=== PATIENT | female | born 1970 | race Caucasian/White ===

== ENCOUNTER → 2017-06-08 | Day surgery (SDC) | payer MEDICAID ==
[~2017-06-08] VITALS: Ht 175.3 cm; Wt 122.5 kg
[~2017-06-08] MED LIST: ANGIOMAX 250 MG VIAL IV ONE; ARIP30TA; ASPI-498 OR; CARV12.544 PO; CHOL20007 PO; CLON1TAB PO; GABA-497 PO; GLIP-116 PO; HEPARIN SODIUM (PORCINE) 5000 UNITS/ML 1ML VIAL ONE; INSLANTI SC; IODIXANOL 320MG/ML 100ML BTL IV ONE; LIDOCAINE 2%HCL (LOCAL ANESTH.) INJ 20ML MDV ONE; METF-372 PO; MIDAZOLAM HCL 1MG/1ML-2 ML VIAL ONE; MONT10TA34 PO; OMEG100062 PO; OMEP20CA74 OR; ONDA4TAB5 PO; ONDANSETRON HCL 4 MG/2 ML VIAL ONE; QUET200T3 PO; QUET400T3 PO; ROPI4TAB4 PO; SIMV-8 PO; TRAZ100T2 PO; VENL225T10 PO; VERAPAMIL 2.5MG/ML INJ 2ML VIAL IV ONE; fentaNYL CITRATE 100 MCG/2 ML VL ONE
== END | disposition home or self-care (01) ==
LOC: CATH 06:51
PROVIDERS: ATTEND Internal Medicine
DX: I20.0 Unstable angina (principal); J44.9 Chronic obstructive pulmonary disease, unspecified; F31.9 Bipolar disorder, unspecified; F41.0 Panic disorder [episodic paroxysmal anxiety]; F41.9 Anxiety disorder, unspecified; F32.9 Major depressive disorder, single episode, unspecified; Z87.891 Personal history of nicotine dependence
CPT/HCPCS: 93458; C1769; C1894; J1644; J3010; J7030; 93005; 99152; J2250; J2405; Q9967

== ENCOUNTER 2020-08-08 12:53 | Inpatient (IN) | payer MEDICAID ==
[~2020-08-08] VITALS: Ht 172.7 cm; Wt 117.9 kg
[~2020-08-08 12:53] MED LIST changes: -ANGIOMAX 250 MG VIAL IV ONE; +ARIP1TAB9; -ARIP30TA; -GABA-497 PO; +GABA300C10 PO; -GLIP-116 PO; +GLIP10TA9 PO; -HEPARIN SODIUM (PORCINE) 5000 UNITS/ML 1ML VIAL ONE; -IODIXANOL 320MG/ML 100ML BTL IV ONE; -LIDOCAINE 2%HCL (LOCAL ANESTH.) INJ 20ML MDV ONE; -MIDAZOLAM HCL 1MG/1ML-2 ML VIAL ONE; +ONDA-144 PO; -ONDA4TAB5 PO; -ONDANSETRON HCL 4 MG/2 ML VIAL ONE; -QUET200T3 PO; +QUET200T4 PO; -ROPI4TAB4 PO; +ROPI4TAB6 PO; -TRAZ100T2 PO; +TRAZ100T3 PO; -VERAPAMIL 2.5MG/ML INJ 2ML VIAL IV ONE; -fentaNYL CITRATE 100 MCG/2 ML VL ONE
[2020-08-08] MEDS ORDERED: ASPirin 81 mg TAB PO ONE (13:15)
[2020-08-08 13:43] LABS: Basophils # (auto) 0 10 ^3/uL (0-0.2); Basophils % (auto) 0.3 % (0.0-2.0); Eosinophils # (auto) 0.2 10 ^3/uL (0-0.8); Eosinophils % (auto) 2.5 % (0.0-7.0); Hematocrit 36.2 % (36.0-46.0); Hemoglobin 11.6 g/dL (12.2-16.2); Lymphocytes # (auto) 2.3 10 ^3/uL (0.4-5.4); Lymphocytes % (auto) 31.3 % (10.0-50.0); Mean Corpuscular Hemoglobin 27.1 pg (28.0-32.0); Mean Corpuscular Hgb Conc. 32.1 g/dL (32.0-36.0); Mean Corpuscular Volume 84.3 fL (80.0-100.0); Monocytes # (auto) 0.5 10 ^3/uL (0-1.3); Monocytes % (auto) 6.6 % (0.0-12.0); Neutrophils # (auto) 4.4 10 ^3/uL (1.6-8.6); Neutrophils % (auto) 59.3 % (37.0-80.0); Platelet Count (auto) 324 10^3/uL (140-450); Red Blood Cells 4.29 10^6/uL (4.0-5.20); Red Cell Distribution Width 17.5 % (11.8-14.3); White Blood Cell 7.4 10^3/uL (4.4-10.8)
[2020-08-08 14:10] LABS: Alanine Aminotransferase 22 U/L (13-56); Albumin 4.1 g/dL (3.4-5.0); Anion Gap 5 (5-15); Blood Urea Nitrogen 12 mg/dL (7-18); Carbon Dioxide 24 mmol/L (21-32); Chloride 110 mmol/L (98-107); Glucose 121 mg/dL (74-106); Magnesium 2.3 mg/dL (1.6-2.6); Potassium 3.8 mmol/L (3.5-5.1); Sodium 139 mmol/L (136-145)
[2020-08-08 14:15] LABS: Alkaline Phosphatase 77 U/L (45-117); Aspartate Aminotransferase 14 U/L (15-37); BUN/Creatinine Ratio 15.4; Bilirubin, Total 0.2 mg/dL (0.2-1.0); GFR African American 101 mL/min; GFR Non-African American 84 mL/min
[2020-08-08] MEDS ORDERED: ONDANSETRON HCL 4 MG/2 ML VIAL IV PRN (15:00)
[2020-08-08] MEDS ORDERED: NITROGLYCERIN 0.4 MG SL TAB SL PRN (15:00)
[2020-08-08] MEDS ORDERED: MORPHINE SULF INJ 2 MG/ML SYRINGE 1ML IV PRN ×2 (15:00)
[2020-08-08] MEDS ORDERED: HYDROcodone-ACET 5/325MG TAB PO PRN (15:00)
[2020-08-08] MEDS ORDERED: ERGO1CAP12 PO (16:50)
[2020-08-08] MEDS ORDERED: OMEP-263 PO (16:50)
[2020-08-08] MEDS ORDERED: PRAV20TA3 PO (16:50)
[2020-08-08] MEDS ORDERED: METF-869 PO (16:50)
[2020-08-08] MEDS ORDERED: GABA-339 PO (16:51)
[2020-08-08] MEDS ORDERED: ONDA-180 PO (16:52)
[2020-08-08] MEDS ORDERED: NAPR500T31 PO (16:55)
[2020-08-08] MEDS ORDERED: ACET-6 PO (16:55)
[2020-08-08] MEDS ORDERED: FERR-20 PO (16:56)
[2020-08-08] MEDS ORDERED: BUPR450T4 PO (16:57)
[2020-08-08 21:48] VITALS: BP 113/82
== END 2020-08-08 23:15 | disposition home health service (06) | DRG 198 ==
LOC: ER 12:53 → TELE 12:54 → TELE-CENTR 18:04
PROVIDERS: ADMIT Internal Medicine; ATTEND Internal Medicine
DX: I25.119 Atherosclerotic heart disease of native coronary artery with unspecified angina pectoris (principal); E11.40 Type 2 diabetes mellitus with diabetic neuropathy, unspecified; G25.81 Restless legs syndrome; I10 Essential (primary) hypertension; J44.9 Chronic obstructive pulmonary disease, unspecified; E66.9 Obesity, unspecified; F32.9 Major depressive disorder, single episode, unspecified; F41.9 Anxiety disorder, unspecified; K21.9 Gastro-esophageal reflux disease without esophagitis; E78.5 Hyperlipidemia, unspecified; Z80.9 Family history of malignant neoplasm, unspecified; Z82.3 Family history of stroke; Z87.442 Personal history of urinary calculi; Z82.49 Family history of ischemic heart disease and other diseases of the circulatory system; Z90.710 Acquired absence of both cervix and uterus; Z95.5 Presence of coronary angioplasty implant and graft; Z68.39 Body mass index [BMI] 39.0-39.9, adult; Z88.1 Allergy status to other antibiotic agents
CPT/HCPCS: 36415; 71045; 80053; 83735; 84484; 85025; 85379; 93005; 93306; G0378